=== PATIENT | female | born 1965 | race Two or more races ===

== ENCOUNTER 2018-12-24 06:00 | Observation (INO) | payer OTHER ==
[2018-12-24] VITALS (15 sets, daily range): BP systolic 121–166; BP diastolic 65–100
[~2018-12-24] VITALS: Ht 160 cm; Wt 77.1 kg
[~2018-12-24 06:00] MED LIST: VITAMIN D35000 UNIT PO
[2018-12-24] MEDS ORDERED: PAXIL10 MG ORAL (06:47)
[2018-12-24] MEDS ORDERED: NS Irrig 1000ml ONE (07:00)
[2018-12-24] MEDS ORDERED: LR 1000ml ONE (07:00)
[2018-12-24] MEDS ORDERED: fentaNYL 100 mcg/2 mL IV ONE (07:00)
[2018-12-24] MEDS ORDERED: cefOXitin Sod 2 GM in D5W 110 ML IVPB ONE (07:00)
[2018-12-24] MEDS ORDERED: Sterile Water Irrig 1000ml IRRIG ONE (07:00)
[2018-12-24] MEDS ORDERED: Midazolam 2mg/2ml Inj ONE (07:01)
[2018-12-24] MEDS ORDERED: cefOXitin 1gm Inj ONE (07:08)
[2018-12-24] MEDS ORDERED: Rocuronium Bromide 50mg/5ml Inj IV ONE (07:08)
[2018-12-24] MEDS ORDERED: Succinylcholine 20mg/ml 10ml vial ONE (07:08)
[2018-12-24] MEDS ORDERED: Ropivacaine 5mg/ml Vial 30ml INJ ONE (07:13)
[2018-12-24] MEDS ORDERED: Propofol 200mg/20ml IV ONE (07:16)
[2018-12-24] MEDS ORDERED: Lidocaine 1% MPF 10mg/ml 5ml ONE (07:16)
[2018-12-24] MEDS ORDERED: TransDerm Scop 1.5mg/72HR Patch TDERMAL ONE ×2 (07:34→10:00)
[2018-12-24] MEDS ORDERED: Metoclopramide 10mg/2ml Inj IVP PRN ×2 (07:45→09:45)
[2018-12-24] MEDS ORDERED: DiphenhydrAMINE 50mg/ml Inj IVP PRN ×2 (07:45→09:45)
[2018-12-24] MEDS ORDERED: HYDROmorphone 1mg/ml Carpuject SUBQ PRN (07:45)
[2018-12-24] MEDS ORDERED: Tylenol #3 tab (300mg/30mg) ORAL PRN (07:45)
[2018-12-24] MEDS ORDERED: HYDROcodone/Acetamin 5/325 tab ORAL PRN (07:45)
--- NOTE | 2018-12-24 07:45 | Pre-Procedure Note/Attestation ---
Pre-Procedure Note/Attestation Complete Prior to Procedure Planned Procedure: bilateral Procedure Narrative: laparoscopy, bilateral salpingoopherectomies, hysteroscopy, dilation and curettage Indications for Procedure Pre-Operative Diagnosis: BRCA1 positive/ genetic predisposition to ovarian cancer Attestation I attest that I discussed the nature of the procedure; its benefits; risks and complications; and alternatives (and the risks and benefits of such alternatives ), prior to the procedure, with the patient (or the patient's legal consumer sales representative). I attest that, if there was a reasonable possibility of needing a blood transfusion, the patient (or the patient's legal consumer sales representative) was given the [place] Department [employer] standardized written summary, pursuant to the [place] Blood Safety Act ([place] Health and Safety Code # 1645, as amended). I attest that I re-evaluated the patient just prior to the surgery and that there has been no change in the patient's H&P, except as documented below: Maty Omer MD Dec 24, 2018 07:45
[2018-12-24] MEDS ORDERED: Morphine Sulfate 10mg/ml Inj ONE (08:31)
[2018-12-24] MEDS ORDERED: Glycopyrrolate 0.2mg/ml 1ml Vial ONE (08:32)
[2018-12-24] MEDS ORDERED: Neostigmine 1mg/ml 10ml Inj ONE (08:32)
[2018-12-24] MEDS ORDERED: Ketorolac 30mg Inj ONE (08:32)
[2018-12-24] MEDS ORDERED: Sodium Chloride 10ml vial INJ ONE (08:33)
[2018-12-24] MEDS ORDERED: NS Irrig 1000ml IRRIG ONE (08:52)
--- NOTE | 2018-12-24 09:22 | Brief Operative Note ---
Immediate Post Operative Note Operative Note Pre-op Diagnosis: BRCA1 positive/ genetic predisposition to ovarian cancer Procedure: laparoscopic BSO/ hysteroscopy/ dilation and curettage Post-op Diagnosis: same and fibroids (1 submucousal) Surgeon: juan diego Crib Pad Maker: ted Anesthesiologist: malka Anesthesia: general Specimen: yes Complications: none Condition: stable Fluids: crystalloid Estimated Blood Loss: minimal Drains: none Implant(s) used?: No Maty Omer MD Dec 24, 2018 09:22
--- NOTE | 2018-12-24 09:34 | Anethesia Preoperative Eval ---
Anesthesia Pre-op PMH/ROS General Date of Evaluation: Dec 24, 2018 Time of Evaluation: 07:10 Anesthesiologist: Aureliano ASA Score: ASA 2 Mallampati Score Class I : Soft palate, uvula, fauces, pillars visible Class II: Soft palate, uvula, fauces visible Class III: Soft palate, base of uvula visible Class IV: Only hard plate visible Mallampati Classification: Class II Surgeon: Negra Diagnosis: Predisposition to ovarian CA Surgical Procedure: Laparoscopic adnexectomy Anesthesia History: PONV Family History: no anesthesia problems Allergies: Coded Allergies: No Known Allergies (Unverified , 12/24/18) Medications: see eMAR Patient NPO?: Yes Past Medical History Cardiovascular: Denies: HTN, CAD, CA, valve dz, arrhythmia, other Pulmonary: Denies: asthma, COPD, SANDRA, other Gastrointestinal/Genitourinary: Reports: GERD; Denies: CRI, ESRD, other Neurologic/Psychiatric: Reports: depression/anxiety; Denies: dementia, CVA, TIA, other Endocrine: Denies: DM, hypothyroidism, steroids, other HEENT: Denies: cataract (L), cataract (R), glaucoma, SOLOMON (L), SOLOMON (R), other Hematology/Immune: Denies: anemia, DVT, bleeding disorder, other Musculoskeletal/Integumentary: Denies: OA, RA, DJD, DDD, edema, other Other: other - overweeight PMH Narrative: as above PSxH Narrative: C- section Anesthesia Pre-op Phys. Exam Physician Exam Last Vital Signs Date Time Temp Pulse Resp B/P (MAP) Pulse Ox O2 Delivery O2 Flow Rate FiO2 12/24/18 06:51 Room Air 12/24/18 06:50 97.5 84 18 151/85 97 Constitutional: NAD Neurologic: CN 2-12 intact Cardiovascular: RRR, no M/R/G Respiratory: CTA Gastrointestinal: S/NT/ND Airway Exam Mallampati Score: Class II MO: limited Neck: short ROM: full Teeth: intact Dentures: no upper, no lower Anesthesia Pre-op A/P Labs see chart Studies Pre-op Studies: EKG - NSR Risk Assessment & Plan Assessment: ASA 2 Plan: GA with ETT PONV prevention Status Change Before Surgery: No Pre-Antibiotics Drug: Cefoxitin 1gr. Given Within 1 Hr of Incision: Yes Time Given: 08:10 Jeison Bedoya MD Dec 24, 2018 09:34
--- NOTE | 2018-12-24 09:36 | Immediate Post-Op Evaluation ---
Immediate Post-Op Evalulation Immediate Post-Op Evalulation Procedure: D&C Hysteroscopy, Bilateral laparoscopic salpigoophorectomy Date of Evaluation: Dec 24, 2018 Time of Evaluation: 09:35 IV Fluids: 1200 Blood Products: none Estimated Blood Loss: min Urinary Output: 500 Blood Pressure Systolic: 116 Blood Pressure Diastolic: 72 Pulse Rate: 78 Respiratory Rate: 20 O2 Sat by Pulse Oximetry: 98 Temperature (Fahrenheit): 97.6 Pain Score (1-10): 2 Nausea: No Vomiting: No Complications none Patient Status: awake, patent, extubated, none Hydration Status: adequate Jeison Bedoya MD Dec 24, 2018 09:36
[2018-12-24] MEDS ORDERED: LR 1000ml 1,000 ML IVLG SCH (09:37)
[2018-12-24] MEDS ORDERED: Ketorolac 30mg Inj IV PRN (09:45)
[2018-12-24] MEDS ORDERED: Meperidine 50mg/ml Inj(FOR RIGORS ONLY) IV PRN (09:45)
--- NOTE | 2018-12-24 12:07 | 48 Hour Post Anesthesia Eval ---
Post Anesthesia Evaluation Procedure: D&C Hysteroscopy, Bilateral laparoscopic salpigoophorectomy Date of Evaluation: Dec 24, 2018 Time of Evaluation: 12:06 Blood Pressure Systolic: 148 0: 82 Pulse Rate: 68 Respiratory Rate: 20 Temperature (Fahrenheit): 97.6 O2 Sat by Pulse Oximetry: 98 Airway: patent Nausea: No Vomiting: No Pain Intensity: 1 Hydration Status: adequate Cardiopulmonary Status: stable Mental Status/LOC: patient returned to baseline Follow-up Care/Observations: n/a Post-Anesthesia Complications: none Follow-up care needed: ready to discharge Jeison Bedoya MD Dec 24, 2018 12:07
--- NOTE | 2018-12-24 15:20 | NUR ---
Patient unable to void. Dr. Omer notified. Bladder scan result was 350 ml. MD was notified. Patient denies discomfort.
--- NOTE | 2018-12-24 16:00 | NUR ---
NURSE NOTES: Patient came to the unit. Received the report from Keya. Pt a/o x 4, in bed. No respiratory discomfort noted. Daughter is at bedside. Abdominal surgical site is dry and intact. Denies any pain at this time. No abnormal bleeding noted. Bed in lowest position, call light within reach. Will continue to monitor.
--- NOTE | 2018-12-24 16:20 | NUR ---
Patient admitted 23 hour hold for post operative urinary retention and was transfered to room 321. Endorsed.
--- NOTE | 2018-12-24 17:15 | Operative Note - Dictated ---
DATE OF OPERATION: 12/24/2018 PREOPERATIVE DIAGNOSES: 1. BRCA1 mutation genetic susceptibility. 2. Ovarian and breast cancer. POSTOPERATIVE DIAGNOSES: 1. BRCA1 mutation genetic susceptibility. 2. Ovarian and breast cancer. PROCEDURE: 1. Bilateral salpingo-oophorectomy. 2. Hysteroscopy. 3. D and C. ANESTHESIA: General endotracheal. SURGEON: Maty Omer M.D. STEM MOUNTER: Rochelle Ramires M.D. ANESTHESIOLOGIST: Jeison Bedoya M.D. ESTIMATED BLOOD LOSS: Minimal. COMPLICATIONS: None. PROCEDURE IN DETAIL: After ensuring informed consent, the patient was taken to the operating room where general anesthesia was induced. The patient was sterilely prepped and draped. Speculum was placed in the vagina. Cervix was dilated to a 7 Hegar dilator. Hysteroscope was placed inside the uterine cavity. Uterine cavity appeared to be normal except for a small anterior submucosal fibroid that was present about 50% inside the uterine cavity. Fractional curettage was performed. Next, attention was turned to the abdomen where the umbilicus was infiltrated with 25% Marcaine. A small incision was made, 5 mm trocar was placed inside the peritoneal cavity. Intraperitoneal placement was confirmed with the camera. CO2 gas was attached. Left lateral 5 mm incision was made after infiltration with local and a 5 mm trocar was placed under direct visualization. Next, suprapubic 10 mm incision was made after infiltration with local and 11 mm trocar was placed inside the suprapubic incision. Next, pelvis was explored. The bilateral ovaries appeared to be within normal limits as well as the tubes. The uterus had approximately 3 cm anterior fibroid. Next, right tube was grasped. The infundibulopelvic ligament was cauterized and then transected. Transection was continued alongside the right broad ligament after identification of the right ureter. Next, utero-ovarian ligament with tubes were grasped, cauterized, and transected. The lines of resection resected and the whole adnexa was amputated. Next, attention was turned to the left side. Likewise, the tube was grasped. Infundibulopelvic ligament on the left was identified, grasped, cauterized, and transected. Resection was continued and brought underneath the tube and the corneal portion of the tube was encountered, which was again cauterized, transected and the adnexa on the left side were removed as well. Adnexa were removed through the suprapubic port in respective bag. Pelvis was copiously irrigated. All trocars were removed under direct visualization and the suprapubic fascia was closed with 0 Vicryl. Steri-Strips were placed on all the incisions. Reyes was removed and the intrauterine manipulator was removed. At the end of the procedure, all instrument and lap counts were correct x2. Maty Omer M.D. DR: Juve JOB#: [id number] CC:
--- NOTE | 2018-12-24 17:30 | NUR ---
NURSE NOTES: BP 166/[address] Ramires and notified. MD ordered clonidine 0.1mg po one time and clonidine 0.1mg po q6 prn when SBP is greater than 160. Order read back and will put the order.
[2018-12-24] MEDS: D5 1/2NS 1,000 ML IV SCH ×2 (18:30→19:31)
--- NOTE | 2018-12-24 18:50 | NUR ---
NURSE NOTES: BP 144/[address] Ramires.
--- NOTE | 2018-12-24 19:28 | NUR ---
HAND OFF: Report given to MEAGAN Nieto. Patient left in stable condition.
--- NOTE | 2018-12-24 22:45 | NUR ---
NURSE NOTE: Pt is A/ox4 with stable VS. Her daughter is at the bedside. Orders reviewed and physical assessment completed. Dressing beneath the umbilicus has minimal serosanguineous drainage, the other 2 lap site dressings are clean. Per the day shift nurses Dirk/Katie the pt was not discharged because of hypertension. Pt 1999 BP was 142/87. Dr. Ramires called, 1999 VS endorsed. Per MD, the pt can stay overnight and be discharged in the AM. Call murry is within reach, will continue to monitor.
[2018-12-25] VITALS: BP 122/70
[2018-12-25 04:17] VITALS: BP 112/70
[2018-12-25] MEDS: D5 1/2NS 1,000 ML IV SCH (04:52)
--- NOTE | 2018-12-25 07:30 | NUR ---
NURSE NOTES: Pt lying in bed w/daughter at bedside, bed in lowest position, and call light within reach. Pt A&Ox4, VSS, and c/o mild KHANNA. IV site intact/asymptomatic & surgical lap sites C/D/I. Pt scheduled to be D/C'd this AM. Will continue to monitor.
--- NOTE | 2018-12-25 07:36 | NUR ---
HAND-OFF: Report given to MEAGAN Johnson.
[2018-12-25 08:00] VITALS: BP 154/86
--- NOTE | 2018-12-25 08:45 | NUR ---
NURSE NOTES: Pt c/o KHANNA and requests medication for BP; administered Tylenol 650 mg and Clonidine 0.[address] Omer, pt cleared to D/C home and is to f/u w/her in her office next week. Will continue to monitor.
[2018-12-25 09:00] VITALS: BP 140/90
--- NOTE | 2018-12-25 09:30 | NUR ---
NURSE NOTES: Pt discharged home w/belongings and home meds from pharmacy; pt escorted via w/c by POWER CUTTING MACHINE OPERATOR to daughter's private vehicle. Pt in stable condition and instructed to schedule f/u appt w/Dr. Omer.
[2018-12-25] MEDS ORDERED: D5 1/2NS 1000ml IV ONE (09:40)
== END 2018-12-25 09:41 | disposition home or self-care (01) ==
LOC: SUR 06:00 → 3E 15:58
DX: Z15.02 Genetic susceptibility to malignant neoplasm of ovary (principal); Z15.01 Genetic susceptibility to malignant neoplasm of breast; D25.0 Submucous leiomyoma of uterus; K21.9 Gastro-esophageal reflux disease without esophagitis; F32.9 Major depressive disorder, single episode, unspecified; F41.9 Anxiety disorder, unspecified; E66.3 Overweight; Z68.30 Body mass index [BMI] 30.0-30.9, adult
CPT/HCPCS: 58558; 58561; 58661; J0330; J0694; J1885; J2250; J2270; J2405; J2704; J2710; J2795; J3010; 94003; 94150; J2765